=== PATIENT | male | born 1980 | race Two or more races ===

== ENCOUNTER 2023-09-24 21:52 | Emergency (ER) | payer BC, OTHER ==
[~2023-09-24] VITALS: Ht 162.6 cm; Wt 79.0 kg
[2023-09-24 22:07] VITALS: BP 119/77; PULSE 116; RESP 18; O2SAT 98
[2023-09-24] MEDS ORDERED: diphenhdrAMINE HCL 50 MG/1 ML VL IM ONE (22:15)
== END 2023-09-24 23:12 | disposition left against medical advice (07) ==
LOC: ER 21:52
DX: T78.40XA Allergy, unspecified, initial encounter (principal); R22.0 Localized swelling, mass and lump, head; R21 Rash and other nonspecific skin eruption; Z53.21 Procedure and treatment not carried out due to patient leaving prior to being seen by health care provider; X58.XXXA Exposure to other specified factors, initial encounter
CPT/HCPCS: 99281; J1200

== ENCOUNTER 2025-08-29 14:04 | Emergency (ER) | payer BC, OTHER ==
[~2025-08-29] VITALS: Ht 172.7 cm; Wt 80.3 kg
[2025-08-29] MEDS ORDERED: PRED20TA2 PO (16:24)
[2025-08-29] MEDS ORDERED: DIPH25CA66 PO (16:24)
[2025-08-29] MEDS ORDERED: AUG875T PO (16:25)
--- NOTE | 2025-08-29 16:25 | ED.PDOC ---
HPI Allergic reaction HPI Comments 45-year-old male patient presents to the clinic for itching to bilateral eyes with inflammation. Patient states this occurred after eating watermelon. Patient states this is the 2nd time this has happened. Patient also has complaints regarding throat pain. Patient denies any fevers, cough. Patient also complaining of congestion. Patient states that his throat pain started last Chief Complaint: Allergic Reaction Time Seen by MD: 14:31 Reviewed Notes: Nurses Notes, Medications, Allergies Allergies: Coded Allergies: NO KNOWN ALLERGIES (Unverified , 09/24/23) Home Meds Active Scripts Amoxicillin & Pot Clavulanate (AUGMENTIN TABLET) 875 Mg Tb, 875 MG PO BID for 7 Days, #14 TAB 0 Refills Prov:[facility] 08/29/25 Diphenhydramine Hcl (Benadryl Allergy) 25 Mg Cap, 25 MG PO Q8HP PRN for 7 Days, #21 CAP 0 Refills Prov:[facility] 08/29/25 Prednisone (Prednisone) 20 Mg Tab, 20 MG PO DAILY for 5 Days, #5 MG Prov:[facility] 08/29/25 Information Source: Patient Mode of Arrival: Ambulatory Family History Family History: Reviewed,noncontributory to illness Constitutional: denies: chills, diaphoresis, fatigue, fever, malaise, sweats, weakness, others EENTM: reports: eye pain, tearing, throat pain Respiratory: denies: cough, hemoptysis, orthopnea, SOB at rest, shortness of breath, SOB with excertion, stridor, wheezing, others Cardiovascular: denies: chest pain, dizzy spells, diaphoresis, Dyspnea on exertion, edema, irregular heart beat, left arm pain, lightheadedness, palpitations, PND, syncope, others Gastrointestinal: denies: abdomen distended, abdominal pain, blood streaked bowels, constipated, diarrhea, dysphagia, difficulty swallowing, hematemesis, melena, nausea, poor appetite, poor fluid intake, rectal bleeding, rectal pain, vomiting, others Genitourinary: denies: burning, dysuria, flank pain, frequency, hematuria, incontinence, penile discharge, penile sore, pain, testicle pain, testicle s welling, urgency, others Neurological: denies: dizziness, fainting, headache, left sided numbness, left sided weakness, numbness, paresthesia, pre-existing deficit, right sided numbness, right sided weakness, seizure, speech problems, tingling, tremors, weakness, others Integumetry: denies: bruises, change in color, change in hair/nails, dryness, laceration, lesions, lumps, rash, wounds, others Allergic/Immunocompromised: denies: Difficulty Healing, Frequent Infections, Hives, Itching, others Hematologic/Lymphatic: denies: anemia, blood clots, easy bleeding, easy bruising, swollen glands, others Endocrine: denies: excessive hunger, excessive sweating, excessive thirst, excessive urination, flushing, intolerance to cold, intolerance to heat, unexplained weight gain, unexplained weight loss, others Psychiatric: denies: anxiety, bipolar disorder, depression, hopeless, panic disorder, schizophrenia, sleepless, suicidal, others All Other Systems: Reviewed and Negative Physical Exam General Appearance: No Apparent Distress, Normal HEENT: Eye Lid (L) (Inflammation), Eye Lid (R) (Inflammation), Normal ENT Inspection, Pharynx Normal (Erythematous), TMs Normal Neck: Full Range of Motion, Non-Tender, Normal, Normal Inspection Respiratory: Chest Non-Tender, Lungs Clear, No Accessory Muscle Use, No Respiratory Distress, Normal Breath Sounds Cardiovascular: No Edema, No JVD, No Murmur, No Gallop, Normal Peripheral Pulses, Regular Rate/Rhythm Breast Exam: Deferred Gastrointestinal: No Organomegaly, Non Tender, No Pulsatile Mass, Normal Bowel Sounds, Soft Genitalia: Deferred Pelvic: Deferred Rectal: Deferred Extremities: No calf tenderness, Normal capillary refill, Normal inspection, Normal range of motion, Non-tender, No pedal edema Musculoskeletal : Apperance: Normal Neurologic: Alert, gmat instructor II-XII nml as Tested, No Motor Deficits, Normal Affect, Normal Mood, No Sensory Deficits Cerebellar Function: Normal Reflexes: Normal Skin: Dry, Normal Color, Warm Lymphatic: No Adenopathy Was a procedure done? Was a procedure done?: No Differential diagnosis (all) Differential Diagnosis: Angioedema, Bronchospasm, Contact Dermatitis, Urticaria X-Ray, Labs, Meds, VS Vital Signs Date Time Temp Pulse Resp B/P (MAP) Pulse Ox O2 Delivery O2 Flow Rate FiO2 08/29/25 16:49 98 17 96 Room Air 08/29/25 16:49 98.1 97 18 129/90 (103) 96 98.1 08/29/25 14:05 98.0 107 19 129/90 96 98.0 Current Medications Medications (Trade) Dose Ordered Sig/Alysha Route Start Time Stop Time Status Last Admin Diphenhydramine HCl (Benadryl Injection) 25 mg ONCE ONCE IM 08/29/25 16:30 08/29/25 16:40 DC 08/29/25 16:43 Methylprednisolone Sodium Succinate (Solu Medrol) 40 mg ONCE ONCE IM 08/29/25 16:30 08/29/25 16:40 DC 08/29/25 16:43 X-Ray, Labs, Meds, VS Comment On re-evaluation patient has symptomatic improvement. Patient advised to follow up with primary care for a referral to an python programmer Patient is stable for discharge at this time. All test results and diagnostic imaging have been interpreted. All diagnostic findings, discharge care, and education instruction provided to the patient. Follow-up with PCP in 2-3 days Patient verbalized understanding, discharge instructions and agrees to treatment plan Vital signs are stable Patient is ambulatory Patient advised of which symptoms necessitate a return visit to the emergency room. Patient to return emergency room for any new worsening symptoms. Patient is aware that the purpose of this visit is for an acute medical emergency requiring emergent stabilization. Chronic conditions, including malignancies have not been ruled out. Patient is instructed to follow up with PCP as directed for continued care and workup. If unable to arrange follow up, patient is to return to the emergency room for reassessment. Patient was given verbal and written discharge instructions and acknowledges understanding Time of 1ST Reevaluation: 17:25 Reevaluation 1ST: Improved Patient Education/Counseling: Diagnosis, Treatment, Prognosis Family Education/Counseling: Diagnosis, Treatment, Prognosis Change of Shift?: No SEPSIS Sepsis Screen Date sepsis recognized/suspect: Aug 29, 2025 Time Sepsis recognized/suspect: 1405 Recent Procedure: No On Antibiotic Therapy: No Respiratory Rate >20: No Heart Rate >90: Yes Temp<36 C (96.8 F) or >38.3 C: No SBP <90 or MAP <65 mmHG: No New Acute Mental Status Change: No Is the patient on CPAP, BIPAP,: No Vital Signs Date Time Temp Pulse Resp B/P (MAP) Pulse Ox O2 Delivery O2 Flow Rate FiO2 08/29/25 16:49 98 17 96 Room Air 08/29/25 16:49 98.1 97 18 129/90 (103) 96 98.1 08/29/25 14:05 98.0 107 19 129/90 96 98.0 Medications Medications Dose Ordered Sig/Alysha Route Start Time Stop Time Status Last Admin Dose Admin Diphenhydramine HCl 25 mg ONCE ONCE IM 08/29/25 16:30 08/29/25 16:40 DC 08/29/25 16:43 Methylprednisolone Sodium Succinate 40 mg ONCE ONCE IM 08/29/25 16:30 08/29/25 16:40 DC 08/29/25 16:43 Departure 1 Departure Time of Disposition: 17:25 Impression: Primary Impression: Allergic reaction Qualified Codes: T78.40XA - Allergy, unspecified, initial encounter Additional Impression: Acute tonsillitis Qualified Codes: J03.80 - Acute tonsillitis due to other specified organisms Disposition: 01 HOME / SELF CARE / HOMELESS Condition: Stable e-Prescriptions Amoxicillin & Pot Clavulanate (AUGMENTIN TABLET) 875 Mg Tb 875 MG PO BID for 7 Days, #14 TAB 0 Refills Prov: [facility] 08/29/25 Diphenhydramine Hcl (Benadryl Allergy) 25 Mg Cap 25 MG PO Q8HP PRN for 7 Days, #21 CAP 0 Refills Prov: [facility] 08/29/25 Prednisone (Prednisone) 20 Mg Tab 20 MG PO DAILY for 5 Days, #5 MG Prov: [facility] 08/29/25 Discharged With: Self Critical Care Note Critical Care Time?: No Stability Stability form required: No Heart Score Heart Score: Heart Score Response (Comments) Value History N/A 0 EKG N/A 0 Age N/A 0 Risk Factors N/A 0 Troponin N/A 0 Total 0 [facility] Aug 29, 2025 16:25
[2025-08-29] MEDS: methylPREDNISolone SOD SUCC 40 MG/ML VL IM ONE (16:43)
[2025-08-29] MEDS: diphenhdrAMINE HCL 50 MG/1 ML VL IM ONE (16:43)
[2025-08-29 16:49] VITALS: BP 129/90; PULSE 98; RESP 17; TEMP 98.1; O2SAT 96
== END 2025-08-29 17:33 | disposition home or self-care (01) ==
LOC: ER 14:04
DX: L29.9 Pruritus, unspecified (principal); T78.40XA Allergy, unspecified, initial encounter; J03.80 Acute tonsillitis due to other specified organisms; X58.XXXA Exposure to other specified factors, initial encounter
CPT/HCPCS: 96372; 99284; J1200; J2919